=== PATIENT | female | born 1955 | race Caucasian/White ===

== ENCOUNTER 2017-02-21 10:58 | Inpatient (IN) | payer OTHER ==
[~2017-02-21] VITALS: Ht 162.6 cm; Wt 102.1 kg
[2017-02-21 11:19] VITALS: BP_SYST 134
[2017-02-21 12:38] LABS: BASOPHILS # (AUTO) 0.1 K/uL (0.0-0.2); BASOPHILS % (AUTO) 0.8 % (0.0-2.0); EOSINOPHILS # (AUTO) 0.1 K/uL (0.0-0.4); EOSINOPHILS % (AUTO) 1.1 % (0.0-4.0); HEMATOCRIT 42.6 % (36-48); HEMOGLOBIN 14.6 g/dL (12.0-16.0); LYMPHOCYTES # (AUTO) 1.9 K/uL (1.0-5.5); LYMPHOCYTES % (AUTO) 22.9 % (20.5-51.5); MEAN CORPUSCULAR HEMOGLOBIN 30 pg (27-31); MEAN CORPUSCULAR HGB CONC 34 % (32-36); MEAN CORPUSCULAR VOLUME 88 fL (79.0-98.0); MONOCYTES # (AUTO) 1.4 K/uL (0.0-1.0); MONOCYTES % (AUTO) 17.2 % (1.7-9.3); NEUTROPHILS # (AUTO) 4.7 K/uL (1.8-7.7); PLATELET COUNT (AUTO) 255 K/uL (130-430); RED BLOOD CELL COUNT(AUTO) 4.86 MIL/uL (4.2-6.2); RED CELL DISTRIBUTION WIDTH 12.3 % (9.0-15.0); WHITE BLOOD COUNT (AUTO) 8.2 K/uL (4.8-10.8)
[2017-02-21 12:39] LABS: BILIRUBIN,URINE 1+ (NEGATIVE); BLOOD, URINE NEGATIVE (NEGATIVE); CLARITY/URINE HAZY (CLEAR); COLOR,URINE YELLOW (YELLOW); GLUCOSE,URINE NEGATIVE (NEGATIVE); KETONES,URINE TRACE (NEGATIVE); LEUKOCYTE ESTERASE ,URINE NEGATIVE (NEGATIVE); NITRITE, URINE NEGATIVE (NEGATIVE); PH,URINE 6.5 (5.0-8.0); PROTEIN URINE 1+ (NEGATIVE)
[2017-02-21 12:55] LABS: CALCIUM 10.3 mg/dL (8.4-11.0); CREATININE 1.17 mg/dL (0.55-1.30); POTASSIUM 3.1 mmol/L (3.5-5.1)
[2017-02-21 12:59] LABS: ALBUMIN 4.1 g/dL (3.4-4.8); TOTAL BILIRUBIN 1.1 mg/dL (0.0-1.0)
[2017-02-21 13:00] LABS: BACTERIA,URINE FEW /HPF (None Seen); RBC,URINE 0-3 /HPF (0-3); WBC,URINE 0-3 /HPF (0-3)
[2017-02-21] MEDS ORDERED: POTASSIUM CHLORIDE 20 MEQ/PKT PACKET PO ONE (13:15)
[2017-02-21] MEDS ORDERED: NACL 0.9% 1,000 ML IV ONE ×2 (13:15→15:30)
[2017-02-21] MEDS ORDERED: LORazepam 2 MG/ML VIAL (FOR ER USE) IVP ONE (15:45)
[2017-02-21] MEDS ORDERED: ONDANSETRON 4 MG ODT TAB PO ONE (16:30)
[2017-02-21 18:42] VITALS: BP_SYST 144
[2017-02-21] MEDS ORDERED: TRIA1CAP53 PO (18:58)
[2017-02-21] MEDS ORDERED: NITR-85 PO (18:58)
[2017-02-21] MEDS ORDERED: GLU500 PO (18:58)
[2017-02-21 19:00] VITALS: BP_SYST 122
[2017-02-21 20:00] VITALS: BP_SYST 122
[2017-02-21] MEDS: PIPERACILLIN/TAZO 3.375 GM in NS 50 ML IV SCH (20:00)
[2017-02-21] MEDS ORDERED: MORPHINE 4 MG/ML INJ. SYRINGE IVP PRN (20:00)
[2017-02-21] MEDS ORDERED: DEXTROSE 50% JECT 50 ML DISP.SYRIN IVP PRN (20:00)
[2017-02-21] MEDS ORDERED: ACETAMINOPHEN 325 MG TABLET PO PRN (20:00)
[2017-02-21] MEDS ORDERED: MORPHINE 2 MG/ML INJ. SYRINGE IVP PRN (20:00)
[2017-02-21] MEDS ORDERED: ONDANSETRON HCL 4 MG/2 ML VIAL IVP PRN (20:00)
[2017-02-21] MEDS: NACL 0.9% 1,000 ML IV SCH (20:02)
[2017-02-22] VITALS: BP_SYST 121
[2017-02-22] MEDS: PIPERACILLIN/TAZO 3.375 GM in NS 50 ML IV SCH ×3 (00:17→11:47)
[2017-02-22] MEDS: INSULIN REGULAR, HUMAN 100 UNITS/ML, 10 ML VIAL (novoLIN R) SUBCUT PRN ×2 (00:36→23:24)
[2017-02-22 04:00] VITALS: BP_SYST 121
[2017-02-22 08:00] VITALS: BP_SYST 115
[2017-02-22] MEDS: NACL 0.9% 1,000 ML IV SCH ×2 (10:41→23:20)
[2017-02-22 11:01] LABS: ALBUMIN 3.1 g/dL (3.4-4.8); CALCIUM 9.2 mg/dL (8.4-11.0); CREATININE 1.16 mg/dL (0.55-1.30); POTASSIUM 3.4 mmol/L (3.5-5.1); TOTAL BILIRUBIN 0.9 mg/dL (0.0-1.0)
[2017-02-22 12:51] VITALS: BP_SYST 124
[2017-02-22 16:13] VITALS: BP_SYST 124
[2017-02-22] MEDS: cefTRIAXone 1 GM in D5W 50 ML IV SCH (17:34)
[2017-02-22 20:10] VITALS: BP_SYST 129
[2017-02-23] VITALS (8 sets, daily range): BP systolic 113–145
[2017-02-23] MEDS: NACL 0.9% 1,000 ML IV SCH (14:23)
[2017-02-23] MEDS: cefTRIAXone 1 GM in D5W 50 ML IV SCH (16:41)
[2017-02-23] MEDS: INSULIN REGULAR, HUMAN 100 UNITS/ML, 10 ML VIAL (novoLIN R) SUBCUT PRN (23:25)
[2017-02-24] MEDS: NACL 0.9% 1,000 ML IV SCH (03:27)
[2017-02-24 03:37] VITALS: BP_SYST 126
[2017-02-24 08:00] VITALS: BP_SYST 148
[2017-02-24] MEDS ORDERED: CIPR-211 PO (10:43)
[2017-02-24 12:06] VITALS: BP_SYST 141
== END 2017-02-24 12:40 | disposition home or self-care (01) | DRG 690 ==
LOC: SED 10:58 → SMU 18:14
PROVIDERS: ADMIT Internal Medicine Hospice and Palliative Medicine; ATTEND Internal Medicine Hospice and Palliative Medicine
DX: N12 Tubulo-interstitial nephritis, not specified as acute or chronic (principal); E87.1 Hypo-osmolality and hyponatremia; I10 Essential (primary) hypertension; E87.6 Hypokalemia; N30.90 Cystitis, unspecified without hematuria; E11.9 Type 2 diabetes mellitus without complications; E66.9 Obesity, unspecified; T37.0X5A Adverse effect of sulfonamides, initial encounter; Y92.89 Other specified places as the place of occurrence of the external cause; Y93.89 Activity, other specified; Y99.8 Other external cause status; Z90.710 Acquired absence of both cervix and uterus; Z88.2 Allergy status to sulfonamides; Z91.048 Other nonmedicinal substance allergy status; Z68.38 Body mass index [BMI] 38.0-38.9, adult; Z87.440 Personal history of urinary (tract) infections
CPT/HCPCS: 36415; 80053; 81000-TC; 82962; 83605; 83690-TC; 85025; 87040-TC; 96361; 96374; 99285; J0696; J1815; J1956; J2060; J2270; J2543; J7030; J7060